=== PATIENT | male | born 1965 | race Caucasian/White ===

== ENCOUNTER 2017-02-18 02:11 | Emergency (ER) | payer BC ==
[~2017-02-18] VITALS: Ht 172.7 cm; Wt 136.2 kg
[2017-02-18] MEDS ORDERED: IPRATRPIUM/ALBUTEROL 0.5/2.5MG 3 ML NEBU. NEB ONE (03:15)
[2017-02-18] MEDS ORDERED: AMOXICILLIN 250 MG CAPSULE PO ONE (03:15)
[2017-02-18] MEDS ORDERED: BUDESONIDE 0.5 MG/2 ML NEBU NEB ONE (03:15)
[2017-02-18] MEDS ORDERED: IPRATRPIUM/ALBUTEROL 0.5/2.5MG 3 ML NEBU. ONE (03:28)
[2017-02-18] MEDS ORDERED: BUDESONIDE 0.5 MG/2 ML NEBU ONE (03:28)
[2017-02-18] MEDS ORDERED: AMOXICILLIN 250 MG CAPSULE ONE (03:29)
[2017-02-18 03:54] VITALS: BP 133/75
[2017-02-18] MEDS ORDERED: FLUT12AE IH (04:10)
[2017-02-18] MEDS ORDERED: ALBU8.5H8 INH (04:10)
[2017-02-18] MEDS ORDERED: IPRA15SP NS (04:10)
[2017-02-18] MEDS ORDERED: AMOX500C PO (04:10)
--- NOTE | 2017-02-18 04:11 | PHYS DOC ---
Adult General Chief Complaint Chief Complaint: COUGH HPI HPI Patient is a 51 year old M who presents with cough, nasal congestion and shortness of breath. Rai states that he has had nasal congestion over the past 10 days and cough associated with shortness of breath over the past 3-4 days. He states his cough is productive. He feels that his shortness of breath is worse with activity and improved with rest. He has associated chest pain with cough. His no chest pain without cough. He does have a history of pneumonia in his 20s. He denies any other associated symptoms. Review of Systems Review of Systems Constitutional: Denies fever or chills [] Eyes: Denies change in visual acuity, redness, or eye pain [] HENT: Denies nasal congestion or sore throat [] Respiratory: Negative except history of present illness Cardiovascular: No additional information not addressed in HPI [] GI: Denies abdominal pain, nausea, vomiting, bloody stools or diarrhea [] : Denies dysuria or hematuria [] Musculoskeletal: Denies back pain or joint pain [] Integument: Denies rash or skin lesions [] Neurologic: Denies headache, focal weakness or sensory changes [] Endocrine: Denies polyuria or polydipsia [] Family History Family History Noncontributory Current Medications Current Medications Current Medications Medications (Trade) Dose Ordered Sig/Jayna Start Time Stop Time Status Last Admin Dose Admin Albuterol/ Ipratropium (Duoneb) 3 ml 1X ONCE 02/18/17 03:15 02/18/17 03:16 UNV Amoxicillin (Amoxil) 1,000 mg 1X ONCE 02/18/17 03:15 02/18/17 03:16 UNV Budesonide (Pulmicort) 0.5 mg 1X ONCE 02/18/17 03:15 02/18/17 03:16 UNV Allergies Allergies Allergies Coded Allergies Type Severity Reaction Last Updated Verified codeine Allergy Mild 02/18/17 Yes Physical Exam Physical Exam Constitutional: Well developed, well nourished, no acute distress, non-toxic appearance. [] HENT: Normocephalic, atraumatic, bilateral external ears normal, oropharynx moist, no oral exudates, nose normal. [] Eyes: PERRLA, EOMI, conjunctiva normal, no discharge. [] Neck: Normal range of motion, no tenderness, supple, no stridor. [] Cardiovascular:Heart rate regular rhythm, no murmur [] Lungs & Thorax: Bilateral breath sounds clear to auscultation [] diminished breath sounds bilaterally Abdomen: Bowel sounds normal, soft, no tenderness, no masses, no pulsatile masses. [] Skin: Warm, dry, no erythema, no rash. [] Back: No tenderness, no CVA tenderness. [] Extremities: No tenderness, no cyanosis, no clubbing, ROM intact, no edema. [] Neurologic: Alert and oriented X 3, normal motor function, normal sensory function, no focal deficits noted. [] Psychologic: Affect normal, judgement normal, mood normal. [] Current Patient Data Vital Signs Normal vital signs. Please review nursing documentation for specifics EKG EKG [] Radiology/Procedures Radiology/Procedures Chest x-ray Impressions: Right lower lobe infiltrate Course & Med Decision Making Course & Med Decision Making Pertinent Labs and Imaging studies reviewed. (See chart for details) [] Dragon Disclaimer Dragon Disclaimer This chart was dictated in whole or in part using Voice Recognition software in a busy, high-work load, and often noisy Emergency Department environment. It may contain unintended and wholly unrecognized errors or omissions. Departure Departure: Impression: Primary Impression: Pneumonia Additional Impressions: Bronchitis Upper respiratory infection Disposition: 01 HOME, SELF-CARE Condition: STABLE Referrals: YULY SOLER MD (PCP) Patient Instructions: Acute Bronchitis, Pneumonia, Adult, Upper Respiratory Infection, Adult Additional Instructions: Eron was seen in the emergency department for cough and congestion. No emergency medical condition was found on history or physical exam. He did have a chest x-ray with findings of pneumonia for which she was started on antibiotics. He was also found to have symptoms of an upper respiratory infection and bronchitis. He was strongly advised to consider regular nasal saline rinses. He was given scripts for nasal sprays and inhaled steroids. He was also given a script for albuterol to be used as needed for shortness of breath and/or coughing spells. He was advised to follow up with his primary care doctor in the next 3-5days for further management. Scripts Ipratropium [place] (IPRATROPIUM BROMIDE) 15 Ml Dennis 15 ML NS TID for 7 Days, SPRAY Prov: DAXA JARQUIN MD 02/18/17 Fluticasone Propionate (FLOVENT 110MCG HFA) 12 Gm Aer.w.adap 2 PUFF IH BID for 7 Days, #1 INHALER 2 Refills Prov: DAXA JARQUIN MD 02/18/17 Albuterol Sulfate (PROAIR HFA INHALER) 8.5 Gm Hfa.aer.ad 1 PUFF INH PRN Q6HRS Y for SHORTNESS OF BREATH for 7 Days, INHALER 0 Refills Prov: DAXA JARQUIN MD 02/18/17 Amoxicillin (AMOXICILLIN) 500 Mg Capsule 1 CAP PO TID, #30 CAP Prov: DAXA JARQUIN MD 02/18/17 Problem Qualifiers Primary Impression: Pneumonia Pneumonia type: due to unspecified organism Laterality: right Lung location : lower lobe of lung Qualified Codes: J18.1 - Lobar pneumonia, unspecified organism Additional Impressions: Upper respiratory infection URI type: unspecified URI Qualified Codes: J06.9 - Acute upper respiratory infection, unspecified DAXA JARQUIN MD Feb 18, 2017 04:11
--- NOTE | 2017-02-18 05:43 | EKG ---
[address] [address] Test Date: 2017-02-18 Test Time: 02:30:00 Pat Name: MAKAYLA VEGA Department: Room: Gender: M Cane Feeder: JAKE : 1965 Requested By: DAXA JARQUIN Order Number: [id number] Reading MD: Measurements Intervals Etters Rate: 89 P: 36 [place]: 148 QRS: -13 QRSD: 94 T: 24 QT: 358 QTc: 437 Interpretive Statements SINUS RHYTHM LEFTWARD AXIS R-S TRANSITION ZONE IN V LEADS DISPLACED TO THE LEFT INCOMPLETE RIGHT BUNDLE BRANCH BLOCK NO SPECIFIC ECG ABNORMALITIES RI6.01 No previous ECG available for comparison
--- NOTE | 2017-02-18 07:31 | RAD ---
EXAM: Chest 2 views. HISTORY: Chest pain, cough, congestion. COMPARISON: None. FINDINGS: Frontal and lateral views of the chest are obtained. A linear opacity in the right base most likely indicates atelectasis. The inspiration is somewhat small. There is no pneumothorax or pleural effusion. The heart is not enlarged. IMPRESSION: 1. Right basilar atelectasis. No confluent infiltrates.
== END 2017-02-18 04:17 | disposition home or self-care (01) ==
LOC: ER 02:11
DX: J18.1 Lobar pneumonia, unspecified organism (principal); J06.9 Acute upper respiratory infection, unspecified; J40 Bronchitis, not specified as acute or chronic; Z88.5 Allergy status to narcotic agent
CPT/HCPCS: 71020; 93005; 94250; 94640; 99284; J7620; J7626

== ENCOUNTER → 2017-09-05 | Outpatient (CLI) | payer BC ==
[~2017-09-05] MED LIST: ALBU8.5H8 INH; AMOX500C PO; FLUT12AE IH; IPRA15SP NS
[2017-09-05 08:43] LABS: ALBUMIN 3.9 g/dL (3.4-5.0); ALBUMIN/GLOBULIN RATIO 1.2 (1.0-1.7); CALCIUM 8.6 mg/dL (8.5-10.1); GFR 78.2; POTASSIUM 4.1 mmol/L (3.5-5.1); TOTAL BILIRUBIN 0.6 mg/dL (0.2-1.0); TOTAL PROTEIN 7.1 g/dL (6.4-8.2)
== END | disposition home or self-care (01) ==
LOC: LAB 08:07
PROVIDERS: ATTEND Nurse Practitioner Family
DX: E11.65 Type 2 diabetes mellitus with hyperglycemia (principal)
CPT/HCPCS: 36415; 80053; 80061

== ENCOUNTER → 2020-04-17 | Outpatient (CLI) | payer BC ==
[~2020-04-17] MED LIST changes: +ALBU2.5V8 INH; -ALBU8.5H8 INH; +ASCO500C9 PO; +ASPI-630 PO; +ATOR40TA59 PO; +INSU100I32 SQ; +OZEM; +PANT40TA6 PO; +PROP15DR40 EACHEYE; +[UNRECOGNIZED DRUG - OTHER]; +cranberry; +ozempic; +valtrex
== END ==
LOC: LAB 15:59
PROVIDERS: ATTEND Nurse Anesthetist, Certified Registered
DX: Z01.812 Encounter for preprocedural laboratory examination (principal); Z20.828 Contact with and (suspected) exposure to other viral communicable diseases; H26.9 Unspecified cataract
CPT/HCPCS: U0003

== ENCOUNTER → 2020-04-20 | Day surgery (SDC) | payer BC ==
[~2020-04-20] MED LIST changes: +ACETAMINOPHEN 500 MG TABLET PO PRN; -ASCO500C9 PO; -ASPI-630 PO; -ATOR40TA59 PO; +BALANCED SALT IRRIG SOLN NO.2 500 ML IO ONE; +BENZONATATE 100 MG CAPSULE. PO PRN; +BRIMONIDINE 0.2% OPHTH SOLUTION 5ML BOTTLE. OS ONE; +CEFUROXIME OPHTH 4 MG/0.4 ML SYRINGE. OS ONE; +CHONDROIT-SOD-HYALURONATE KIT. OS ONE; +IBUPROFEN 200 MG TABLET PO PRN; -INSU100I32 SQ; +IPRATRPIUM/ALBUTEROL 0.5/2.5MG 3 ML NEBU. NEB PRN; +IV RINGERS SOLUTION,LACTATED 1,000 ML IV SCH; +KETOROLAC TROMETHAMINE 0.5% OPHTH SOLUTION BOTTLE. OS ONE; +LIDO/EPI IN BSS OPHTH 2.7 ML SYRINGE. OS ONE; +LIDOCAINE 2% JELLY 6ML IN APPLICATOR. TP ONE; +MIDAZOLAM HCL PF 2 MG/2 ML VIAL. IV ONE; +MIDAZOLAM HCL PF 2 MG/2 ML VIAL. ONE; +ONDANSETRON PF 4 MG/2 ML VIAL. IV PRN; -OZEM; -PANT40TA6 PO; +PHENYLEPHRINE 10% OPHTH SOLUTION 5ML BOTTLE. OS PRN; +POVIDONE-IODINE 5% OPHTH SOLUTION 30ML BOTTLE. OS ONE; +POVIDONE-IODINE 5% OPHTH SOLUTION 30ML BOTTLE. OS PRN; -PROP15DR40 EACHEYE; +PROPARACAINE 0.5% OPHTH SOLUTION 15ML BOTTLE. OS ONE; +PROPARACAINE 0.5% OPHTH SOLUTION 15ML BOTTLE. OS PRN; -[UNRECOGNIZED DRUG - OTHER]; -cranberry; -ozempic; +prednisoLONE ACETATE 1% OPHTH SUSPENSION 5ML BOTTLE. OS ONE; -valtrex
[2020-04-20] MEDS: DICLOFENAC SODIUM 0.1% OPHTH SOLUTION 2.5ML BOTTLE. OS SCH ×2 (07:31→07:38)
[2020-04-20] MEDS: TOBRAMYCIN 0.3% OPHTH SOLUTION 5ML BOTTLE. OS SCH ×2 (07:31→07:39)
[2020-04-20] MEDS: TROPICAMIDE 1% OPHTH SOLUTION 15ML BOTTLE. OS SCH ×3 (07:31→07:46)
[2020-04-20] MEDS: PHENYLEPHRINE 2.5% OPHTH SOLUTION 2ML BOTTLE. OS SCH ×3 (07:31→07:46)
--- NOTE | 2020-04-20 09:18 | PDOC4 ---
SURGEON: Ivet Baker MD Date of Procedure: 04/20/20 PREOP Diagnosis Visually significant cataract: Left Eye OS POSTOP Diagnosis Same PROCEDURE: Phaco w/ posterior chamber IOL: Left Eye OS ANESTHESIA Deep forniceal periocular 2% Lidocaine jelly Hodan/retro bulbar block with 2% Lidocaine with 0.5% Marcaine DESCRIPTION OF PROCEDURE The risks, benefits, and alternatives were discussed with the patient who elected to proceed. Informed consent was obtained in writing and placed in the chart After anesthetizing the eye topically, the patient was taken to the operating room, and the operative eye was prepped and draped in the usual sterile fashion for ocular surgery. A wire lid speculum was placed. A 1-mm clear corneal paracentesis incision was created with the side-port blade at a position three o'clock hours clockwise from the temporal cornea. Then, 1% non-preserved Lidocaine with epinephrine was injected into the anterior chamber followed by viscoelastic. Cotton-tipped applicators were used to stabilize the globe, and a 2.4 mm keratome was used to create a self-sealing incision in clear cornea at the temporal limbus. The Utrata forceps were used to create a continuous curvilinear capsulorrhexis. Balanced saline solution was injected via cannula beneath the capsulorrhexis edge to hydrodissect the lens nucleus and cortex from the lens capsule. The phacoemulsification handpiece and a chopping instrument were then used to remove the lens nucleus. The remaining epinuclear material and cortex were removed with the irrigation/aspiration handpiece. Visc oelastic was used to re-inflate the lens capsule, and the intraocular lens was injected directly into the capsular bag. The corneal wound edges were hydrated with balanced salt solution on a cannula and the irrigation/aspiration handpiece was used to extract the remaining viscoelastic. Cefuroxime 0.1mg/ml / Vigamox 0.5% was injected into the anterior chamber intracamerally. The wounds were inspected and found to be watertight at an appropriate intraocular pressure. Topical antibiotic drops were placed on the corneal surface. LRI: No If Yes, Number [] Lyons [] Length [] degrees Depth [] microns Incision Lyons: 180 Toric Lens Lyons [] Patch/shield with Maxitrol/Tobradex/Erythromycin ointment: Yes No Co-managed patients/postop examination stable for co-management with referring doctor. IVET BAKER MD Apr 20, 2020 09:18
[2020-04-20 09:25] VITALS: BP 127/76
== END | disposition home or self-care (01) ==
LOC: SURG 07:08
PROVIDERS: ATTEND Ophthalmology
DX: E11.36 Type 2 diabetes mellitus with diabetic cataract (principal); H25.12 Age-related nuclear cataract, left eye; E11.65 Type 2 diabetes mellitus with hyperglycemia; Z88.5 Allergy status to narcotic agent; Z87.01 Personal history of pneumonia (recurrent); Z98.890 Other specified postprocedural states; Z79.899 Other long term (current) drug therapy
CPT/HCPCS: 66984; 82947; J2250; V2632